=== PATIENT | male | born 1930 | race Two or more races ===

== ENCOUNTER 2018-12-12 09:46 | Emergency (ER) | payer MEDICARE, MEDICAID ==
[~2018-12-12] VITALS: Ht 177.8 cm; Wt 72.2 kg
[2018-12-12] MEDS ORDERED: MULT-1239 PO (10:05)
[2018-12-12] MEDS ORDERED: NYST30CR9 TP (10:05)
[2018-12-12] MEDS ORDERED: BENZ-51 PO (10:05)
[2018-12-12] MEDS ORDERED: GALA4 PO (10:05)
[2018-12-12] MEDS ORDERED: ATEN100T PO (10:05)
[2018-12-12] MEDS ORDERED: DOCU-275 PO (10:05)
[2018-12-12] MEDS ORDERED: AMLO5TAB9 PO (10:05)
[2018-12-12] MEDS ORDERED: ACET-3207 PO (10:05)
[2018-12-12] MEDS ORDERED: CHOL100018 PO (10:05)
[2018-12-12] MEDS ORDERED: PANT40TA25 PO (10:05)
[2018-12-12] MEDS ORDERED: LACT1TAB11 PO (10:05)
[2018-12-12] MEDS ORDERED: ASPI-1182 PO (10:05)
[2018-12-12] MEDS ORDERED: MOM30 PO (10:05)
[2018-12-12 11:04] VITALS: BP 176/77
== END 2018-12-12 11:05 | disposition home or self-care (01) ==
LOC: EMS 09:50
DX: S51.811A Laceration without foreign body of right forearm, initial encounter (principal); I11.0 Hypertensive heart disease with heart failure; I50.9 Heart failure, unspecified; Z79.899 Other long term (current) drug therapy; Z79.82 Long term (current) use of aspirin; Z88.8 Allergy status to other drugs, medicaments and biological substances; W05.0XXA Fall from non-moving wheelchair, initial encounter; Y93.89 Activity, other specified; Y92.89 Other specified places as the place of occurrence of the external cause; Y99.8 Other external cause status